=== PATIENT | female | born 1955 ===

== ENCOUNTER 2021-10-11 07:25 | Emergency (ER) | payer MEDICARE, OTHER ==
[~2021-10-11] VITALS: Ht 157.5 cm; Wt 59.0 kg
[2021-10-11 07:59] VITALS: BP 151/84
[2021-10-11] MEDS ORDERED: METH4PAK PO (08:13)
[2021-10-11] MEDS ORDERED: LEVO500T31 PO (08:13)
== END 2021-10-11 08:26 | disposition home or self-care (01) ==
LOC: ER 07:25
DX: J20.9 Acute bronchitis, unspecified (principal); I10 Essential (primary) hypertension
CPT/HCPCS: 71046